=== PATIENT | female | born 1980 | race African-American/Black ===

== ENCOUNTER 2017-05-16 08:29 | Emergency (ER) | payer OTHER ==
[~2017-05-16] VITALS: Ht 172.7 cm; Wt 50.0 kg
[~2017-05-16 08:29] MED LIST: AMOXICILLIN500 MG PO; AMOXIL500 MG OR; BACTROBAN2 % EX; FLEXERIL OR; KEFLEX500 MG OR; LORTAB 5-325 MG1 TAB PO; LORTAB 7.5 OR; LORTAB5 OR; LYRICA75 MG PO; MELOXICAM7.5 MG PO; NAPROSYN500 MG PO; NO; NO CURRENT MEDS; NO MEDS; PERCOCET 5/325M1 TAB OR; TORADOL OR; ULTRAM50 M1 OR; ULTRAM50 M1 PO; VIBRAMYCIN100 MG OR; ZOFRAN ODT4 MG OR
[2017-05-16 08:50] VITALS: BP 138/62
[2017-05-16] MEDS ORDERED: FLEXERIL PO (09:14)
[2017-05-16] MEDS ORDERED: MOTRIN800 MG PO (09:14)
[2017-05-16] MEDS ORDERED: TRAMADOL HYDROC50 MG PO (09:14)
== END 2017-05-16 10:24 | disposition home or self-care (01) | DRG 552 ==
LOC: ED 08:29
DX: M43.6 Torticollis (principal); M50.223 Other cervical disc displacement at C6-C7 level

== ENCOUNTER 2017-11-24 20:44 | Emergency (ER) | payer OTHER ==
[~2017-11-24] VITALS: Ht 172.7 cm; Wt 48.6 kg
[~2017-11-24 20:44] MED LIST changes: +FLEXERIL PO; +MOTRIN800 MG PO; +TRAMADOL HYDROC50 MG PO
[2017-11-24 22:00] LABS: HEMATOCRIT 40.3 % (37.0-47.0); HEMOGLOBIN 13.5 g/dl (12.0-16.0); IMMATURE GRANULOCYTES 0.1 % (0.0-1.0); MEAN CORPUSCULAR HGB 29.8 pG CALC (26.0-32.0); MEAN CORPUSCULAR HGB CONC 33.5 g/L CALC (32.0-36.0); NEUT# 4.32 thou/uL (2.00-7.15); RED BLOOD COUNT 4.53 mill/uL (4.20-5.60); RED CELL DISTRI WIDTH 12.9 % (11.5-15.5)
[2017-11-24 22:30] LABS: ALBUMIN 4.6 g/dL (3.2-5.0); ALKALINE PHOSPHATASE 111 u/l (38-126); ANION GAP 17 (6-22 (CALC)); BILIRUBIN, TOTAL 0.3 mg/dL (0.0-1.4); BUN 13 mg/dL (7-17); BUN/CREATININE RATIO 14 (12-20 (CALC)); CARBON DIOXIDE 23 mmol/l (22-30); CHLORIDE 107 mmol/l (95-108); CREATININE 0.9 mg/dL (0.5-1.0); GFR > 60 ML/MIN (>=60 (CALC)); GFR FOR AFR.AMER. > 60 ML/MIN (>=60 (CALC)); LIPASE 204 u/l (23-300); POTASSIUM 3.7 mmol/l (3.5-5.1); SGOT/AST 30 u/l (14-36); SGPT/ALT 26 u/l (9-52); SODIUM 144 mmol/l (137-146); TOTAL PROTEIN 7.1 g/dL (6.3-8.2)
[2017-11-24 22:38] LABS: AMYLASE 1802 u/l (30-110)
[2017-11-25] MEDS ORDERED: PERCOCET 5/325M1 TAB PO (00:48)
[2017-11-25] MEDS ORDERED: AUGMENTIN875TAB PO (00:48)
[2017-11-25 00:54] VITALS: BP 111/63
== END 2017-11-25 01:13 | disposition home or self-care (01) | DRG 153 ==
LOC: ED 20:44
PROVIDERS: Emergency Medicine
DX: H66.91 Otitis media, unspecified, right ear (principal); H92.01 Otalgia, right ear; M54.2 Cervicalgia
CPT/HCPCS: Q9967

== ENCOUNTER 2018-02-12 22:10 | Emergency (ER) | payer OTHER ==
[~2018-02-12] VITALS: Ht 172.7 cm; Wt 50.9 kg
[~2018-02-12 22:10] MED LIST changes: +AUGMENTIN875TAB PO; +PERCOCET 5/325M1 TAB PO
[2018-02-13] MEDS ORDERED: MOTRIN400 MG PO (01:07)
[2018-02-13 01:30] VITALS: BP 120/68
== END 2018-02-13 01:30 | disposition home or self-care (01) | DRG 563 ==
LOC: ED 22:10
DX: S93.401A Sprain of unspecified ligament of right ankle, initial encounter (principal); S93.601A Unspecified sprain of right foot, initial encounter; W23.1XXA Caught, crushed, jammed, or pinched between stationary objects, initial encounter; Y93.01 Activity, walking, marching and hiking; Y92.007 Garden or yard of unspecified non-institutional (private) residence as the place of occurrence of the external cause

== ENCOUNTER 2019-12-04 | Emergency (ER) | payer BC ==
[~2019-12-04] MED LIST changes: +MOTRIN400 MG PO
[2019-12-04 14:42] LABS: URINE BILIRUBIN - DIPSTICK NEGATIVE (NEGATIVE); URINE BLOOD DIPSTICK NEGATIVE (NEGATIVE); URINE CLARITY CLEAR; URINE COLOR YELLOW; URINE GLUCOSE - DIPSTICK NEGATIVE (NEGATIVE); URINE KETONE NEGATIVE (NEGATIVE); URINE LEUK ESTERASE NEGATIVE (Negative); URINE NITRITE - DIPSTICK NEGATIVE (Negative); URINE PH 5.5 (4.5-8.0); URINE PROTEIN - DIPSTICK NEGATIVE (NEG-TRACE); URINE SPECIFIC GRAVITY 1.025; URINE UROBILINOGEN - DIPSTICK 0.2 E.U./dL (0.2)
[2019-12-04 15:06] LABS: HEMATOCRIT 41.8 % (37.0-47.0); HEMOGLOBIN 13.5 g/dl (12.0-16.0); IMMATURE GRANULOCYTES 0.3 % (0.0-5.0); MEAN CELL VOLUME 90.1 fL CALC (80.0-100.0); MEAN CORPUSCULAR HGB 29.1 pG CALC (26.0-32.0); MEAN CORPUSCULAR HGB CONC 32.3 g/L CALC (32.0-36.0); NEUT# 3.17 thou/uL (2.00-7.15); RED BLOOD COUNT 4.64 mill/uL (4.20-5.60); RED CELL DISTRI WIDTH 13.4 % (11.5-15.5)
[2019-12-04 15:24] LABS: ALBUMIN 4.2 g/dL (3.2-5.0); ALKALINE PHOSPHATASE 60 u/l (38-126); ANION GAP 10 (6-22 (CALC)); BILIRUBIN, TOTAL 0.5 mg/dL (0.0-1.4); BUN 10 mg/dL (7-17); BUN/CREATININE RATIO 15 (12-20 (CALC)); CARBON DIOXIDE 26 mmol/l (22-30); CHLORIDE 105 mmol/l (95-108); CREATININE 0.7 mg/dL (0.5-1.0); GFR > 60 ML/MIN (>=60 (CALC)); GFR FOR AFR.AMER. > 60 ML/MIN (>=60 (CALC)); POTASSIUM 4.3 mmol/l (3.5-5.1); SGOT/AST 28 u/l (14-36); SODIUM 137 mmol/l (137-146)
[2019-12-04] MEDS ORDERED: BACTRIM DS1 TAB PO (15:59)
[2019-12-04] MEDS ORDERED: DIFLUCAN100 M1 PO (15:59)
[2019-12-04] MEDS ORDERED: FLEXERIL5 M1 PO (15:59)
[2019-12-04] MEDS ORDERED: KEFLEX500 M1 PO (15:59)
== END 2019-12-04 16:27 | disposition home or self-care (01) | DRG 552 ==
DX: M54.6 Pain in thoracic spine (principal); L02.214 Cutaneous abscess of groin

== ENCOUNTER 2019-12-17 08:30 | Emergency (ER) | payer OTHER, BC ==
[~2019-12-17 08:30] MED LIST changes: +BACTRIM DS1 TAB PO; +DIFLUCAN100 M1 PO; +FLEXERIL5 M1 PO; +KEFLEX500 M1 PO
[2019-12-17] MEDS ORDERED: VOLTAREN - GENE75 MG PO (09:12)
[2019-12-17] MEDS ORDERED: ORPHENADRINE100 MG PO (09:12)
[2019-12-17 09:19] VITALS: BP 113/77
== END 2019-12-17 09:20 | disposition home or self-care (01) | DRG 563 ==
LOC: ED 08:30
DX: S39.012A Strain of muscle, fascia and tendon of lower back, initial encounter (principal); S86.811A Strain of other muscle(s) and tendon(s) at lower leg level, right leg, initial encounter; X50.0XXA Overexertion from strenuous movement or load, initial encounter; Y93.89 Activity, other specified; Y92.213 High school as the place of occurrence of the external cause; Y99.0 Civilian activity done for income or pay

== ENCOUNTER 2023-11-07 18:35 | Emergency (ER) | payer OTHER, BC ==
[~2023-11-07] VITALS: Ht 172.7 cm; Wt 49.0 kg
[~2023-11-07 18:35] MED LIST changes: +ORPHENADRINE100 MG PO; +VOLTAREN - GENE75 MG PO
[2023-11-07 19:25] VITALS: BP 158/92
[2023-11-07 19:30] VITALS: BP 122/79
[2023-11-07 20:00] VITALS: BP 137/86
[2023-11-07 20:32] VITALS: BP 152/95
[2023-11-07] MEDS ORDERED: MOTRIN400 MG/TAB PO (20:32)
[2023-11-07] MEDS ORDERED: LORTAB 1010 MG PO (20:32)
[2023-11-07 20:42] VITALS: BP 137/86
== END 2023-11-07 21:03 | disposition home or self-care (01) | DRG 563 ==
LOC: ED 18:35
PROC: 2W3CX1Z Immobilization of Right Lower Arm using Splint (ICD-10-PCS; principal; 2023-11-07)
DX: S52.124A Nondisplaced fracture of head of right radius, initial encounter for closed fracture (principal); W03.XXXA Other fall on same level due to collision with another person, initial encounter; Y93.67 Activity, basketball

== ENCOUNTER → 2023-11-18 | Emergency (ER) | payer BC ==
[~2023-11-18] MED LIST changes: +LORTAB 1010 MG PO; +MOTRIN400 MG/TAB PO
== END | disposition home or self-care (01) | DRG 951 ==
LOC: ED 15:04 → LWOBS 15:23
DX: Z53.21 Procedure and treatment not carried out due to patient leaving prior to being seen by health care provider (principal)